=== PATIENT | female | born 1970 | race Caucasian/White ===

== ENCOUNTER 2017-05-06 11:21 | Day surgery (SDC) | payer BC ==
[2017-05-06] MEDS ORDERED: D5 LR 1000 ML 1,000 ML IV ONE (11:31)
[2017-05-06] MEDS ORDERED: DIPRIVAN VIAL 20 ML ONE ×2 (13:27→13:52)
[2017-05-06 14:52] VITALS: BP 126/81
== END 2017-05-06 14:30 | disposition home or self-care (01) ==
LOC: SURG1 11:21
PROVIDERS: ATTEND Internal Medicine Gastroenterology
PROC: 0DJD8ZZ Inspection of Lower Intestinal Tract, Via Natural or Artificial Opening Endoscopic (ICD-10-PCS; principal; 2017-05-06 17:30)
DX: R19.4 Change in bowel habit (principal); R10.84 Generalized abdominal pain; K92.1 Melena; K57.30 Diverticulosis of large intestine without perforation or abscess without bleeding; K64.0 First degree hemorrhoids; K63.89 Other specified diseases of intestine; Z80.0 Family history of malignant neoplasm of digestive organs
CPT/HCPCS: A4217; J3490; J7120